=== PATIENT | male | born 1985 | race Caucasian/White ===

== ENCOUNTER 2017-07-24 11:36 | Emergency (ER) | payer OTHER ==
[2017-07-24 12:22] VITALS: BMI 23.3
--- NOTE | 2017-07-24 12:41 | PDOC ---
Attending Attestation - Resident Resident Name: AmandeepArun akins - ED Attending Attestation I have performed the following: I have examined & evaluated the patient, The case was reviewed & discussed with the resident, I agree w/resident's findings & plan, Exceptions are as noted - HPI HPI: 07/24/17 12:29 32-year-old with past medical history of ulcerative colitis on mercaptopurine presents with abdominal pain and bloody stools. The patient started have symptoms 2 days ago when he developed loose stools and lower abdominal discomfort. Has been tolerating by mouth. However, was endorsing tactile fevers and chills and sweats. Yesterday night, noticed some blood in his toilet paper and today in his stools. He denies any headaches, nausea or vomiting. Came to the ED for further evaluation. 5 years ago, patient did have a history where he is admitted to the ICU for sinus venous thrombosis and was placed on heparin. He was in the ICU for approximately 2 months and sent to a subacute rehabilitation facility afterwards. The patient subsequently made a full recovery. He denies any headaches or neurological deficits at this time. - Physicial Exam PE: 07/24/17 12:41 GENERAL: Awake, alert, and fully oriented, in no acute distress. HEAD: No signs of trauma EYES: PERRLA, EOMI, sclera anicteric, conjunctiva clear ENT: Auricles normal inspection, hearing grossly normal, nares patent, oropharynx clear without exudates. NECK: Normal ROM, supple, no lymphadenopathy, JVD, or masses LUNGS: Breath sounds equal, clear to auscultation bilaterally. No wheezes, and no crackles HEART: Regular rate and rhythm, normal S1 and S2, no murmurs, rubs or gallops ABDOMEN: Soft, nontender, normoactive bowel sounds. No guarding, no rebound. No masses EXTREMITIES: Normal range of motion, no edema. No clubbing or cyanosis. No cords, erythema, or tenderness NEUROLOGICAL: Cranial nerves II through XII grossly intact. Normal speech, normal gait SKIN: Warm, Dry, normal turgor, no rashes or lesions noted. - Medical Decision Making 07/24/17 12:42 Vital Signs Temp Pulse Resp BP Pulse Ox 99.0 F 84 18 138/88 100 07/24/17 11:49 07/24/17 11:49 07/24/17 11:49 07/24/17 11:49 07/24/17 11:49 Patient's symptoms are concerning for ulcerative colitis flareup. Patient will need labs, CAT scan of the abdomen pelvis. Once results return, we'll touch base with the patient's GI personal physician Dr. Burciaga [phone] 07/24/17 17:17 CBC, BMP 07/24/17 12:35 07/24/17 12:35 CMP Sodium 136 mmol/L (136-145) 07/24/17 12:35 Potassium 3.7 mmol/L (3.5-5.1) 07/24/17 12:35 Chloride 103 mmol/L (98-107) 07/24/17 12:35 Carbon Dioxide 26 mmol/L (21-32) 07/24/17 12:35 Anion Gap 7 (8-16) L 07/24/17 12:35 BUN 8 mg/dL (7-18) 07/24/17 12:35 Creatinine 0.9 mg/dL (0.7-1.3) 07/24/17 12:35 Creat Clearance w eGFR > 60 (>60) 07/24/17 12:35 Random Glucose 83 mg/dL (74-106) 07/24/17 12:35 Lactic Acid 0.6 mmol/L (0.4-2.0) 07/24/17 12:35 Calcium 8.7 mg/dL (8.5-10.1) 07/24/17 12:35 Total Bilirubin 0.5 mg/dL (0.2-1.0) 07/24/17 12:35 AST 7 U/L (15-37) L 07/24/17 12:35 ALT 15 U/L (12-78) 07/24/17 12:35 Alkaline Phosphatase 66 U/L (45-117) 07/24/17 12:35 C-Reactive Protein 6.7 MG/DL (0.00-0.3) H 07/24/17 12:35 Total Protein 7.3 g/dl (6.4-8.2) 07/24/17 12:35 Albumin 4.0 g/dl (3.4-5.0) 07/24/17 12:35 CT scan demonstrates findings consistent with ulcerative colitis. Dispo per DR. Knowles (who is covering for Dr. Burciaga).
[2017-07-24 13:08] LABS: BASO % 0.2 % (0-2.0); EOS % 1.1 % (0-4.5); HEMATOCRIT 44.8 % (35.4-49); HEMOGLOBIN 14.7 GM/dL (11.7-16.9); LYMPH % 6.9 % (8-40); MCH 30.8 pg (25.7-33.7); MCHC 32.9 g/dl (32.0-35.9); MEAN CELL VOLUME 93.7 fl (80-96); MEAN PLT VOLUME 7.6 fl (7.5-11.1); MONO % 7.1 % (3.8-10.2); NEUT % 84.7 % (42.8-82.8); PLATELET COUNT 254 K/MM3 (134-434); RBC 4.78 M/mm3 (4.00-5.60); RDW 13.9 % (11.9-15.9); WHITE BLOOD COUNT 11.2 K/mm3 (4.0-10.0)
[2017-07-24 13:30] LABS: ALK PHOS 66 U/L (45-117); ANION GAP 7 (8-16); BILIRUBIN,TOTAL 0.5 mg/dL (0.2-1.0); BLOOD UREA NITROGEN 8 mg/dL (7-18); CALCIUM 8.7 mg/dL (8.5-10.1); CHLORIDE 103 mmol/L (98-107); CO2 26 mmol/L (21-32); CREATININE 0.9 mg/dL (0.7-1.3); GLUCOSE,RANDOM 83 mg/dL (74-106); POTASSIUM 3.7 mmol/L (3.5-5.1); SGOT/AST 7 U/L (15-37); SGPT/ALT 15 U/L (12-78); SODIUM 136 mmol/L (136-145); TOT PROT 7.3 g/dl (6.4-8.2)
[2017-07-24 13:44] LABS: INR 1.02 (0.82-1.09); PROTHROMBIN TIME (PATIENT) 11.5 SEC (9.98-11.88)
--- NOTE | 2017-07-24 13:45 | PDOC ---
History of Present Illness - General Chief Complaint: Pain, Acute Stated Complaint: ABD PAIN (PCP SENT) Time Seen by Provider: 07/24/17 11:45 - History of Present Illness Initial Comments: 07/24/17 13:40 Pt is a 32M with PMH Ulcerative Collitis with a severe flare up in the several years ago complicated by venous sinus thrombosis, Stroke (residual L leg weakness resolved after rehab. Pt was on Coumadin), and seizures. Pt comes in today with subjective fevers since (unmeasured, but pt has been sweating through his clothes, changing twice daily) and nonbloody diarrhea since . Last night, he noticed streaks of blood on his toilet paper, and had 1 BM today , also with blood on the TP. Pt also reports lower abdominal pain, nonradiating , especially worsened when having BM. Denies headache, cp, sob, weakness, dizziness, decreased PO intake. Pt currently afebrile, stable, in NAD. Past History - Past Medical History Allergies/Adverse Reactions: Allergies Allergy/AdvReac Type Severity Reaction Status Date / Time No Known Allergies Allergy Verified 07/24/17 11:54 Home Medications: Ambulatory Orders Mercaptopurine [Purinethol -] 75 mg PO DAILY 07/24/17 COPD: No GI Disorders: Yes (colitis) Other medical history: sinus venous thrombosis. - Suicide/Smoking/Psychosocial Hx Smoking History: Never smoked Have you smoked in the past 12 months: No Number of Cigarettes Smoked Daily: 20 Information on smoking cessation initiated: No Hx Alcohol Use: No Drug/Substance Use Hx: No Substance Use Type: None Review of Systems - Review of Systems Able to Perform ROS?: Yes Is the patient limited Ivorian proficient: No Constitutional: Yes: Symptoms Reported, Chills, Diaphoresis (soaking clothes), Fever HEENTM: Yes: Symptoms Reported. No: Eye Pain, Blurred Vision Respiratory: Yes: Symptoms reported. No: Cough, Orthopnea, Shortness of Breath Cardiac (ROS): Yes: Symptoms Reported. No: Chest Pain, Edema, Lightheadedness, Palpitations, Syncope ABD/GI: Yes: Symptoms Reported, Abd. Pain w/ defecation, Diarrhea, Rectal Bleeding (streaks on TP), Abdominal cramping. No: Abdominal Distended, Constipated, Nausea, Poor Appetite, Poor Fluid Intake : Yes: Symptoms Reported. No: Burning, Dysuria, Discharge Musculoskeletal: Yes: Symptoms Reported. No: Back Pain, Joint Pain Integumentary: Yes: Symptoms Reported. No: Rash Neurological: Yes: Symptoms reported. No: Headache *Physical Exam - Vital Signs Last Vital Signs Temp Pulse Resp BP Pulse Ox 99.0 F 84 18 138/88 100 07/24/17 11:49 07/24/17 11:49 07/24/17 11:49 07/24/17 11:49 07/24/17 11:49 - Physical Exam General Appearance: Yes: Nourished, Appropriately Dressed. No: Apparent Distress HEENT: positive: EOMI, ANJEL, Normal ENT Inspection Neck: positive: Supple. negative: Tender, Carotid bruit, Lymphadenopathy (R), Lymphadenopathy (L) Respiratory/Chest: positive: Lungs Clear, Normal Breath Sounds. negative: Chest Tender, Respiratory Distress Cardiovascular: positive: Regular Rhythm, Regular Rate, S1, S2. negative: Edema , JVD, Murmur Vascular Pulses: Dorsalis-Pedis (R): 2+, Doralis-Pedis (L): 2+ Gastrointestinal/Abdominal: positive: Normal Bowel Sounds, Flat, Soft. negative : Tender, Organomegaly, Pulsatile Mass, Protuberent, Distended, Guarding, Hepatomegaly, Spleenomegaly Musculoskeletal: positive: Normal Inspection. negative: CVA Tenderness Extremity: positive: Normal Capillary Refill, Normal Inspection, Normal Range of Motion Integumentary: positive: Normal Color Neurologic: positive: medical billing clerk II-XII NML intact, Fully Oriented, Alert, Normal Mood/ Affect, Normal Response, Motor Strength 5/5 ED Treatment Course - LABORATORY CBC & Chemistry Diagram: 07/24/17 12:35 07/24/17 12:35 - ADDITIONAL ORDERS Additional order review: Laboratory Results 07/24/17 07/24/17 12:35 12:35 Sodium 136 Potassium 3.7 Chloride 103 Carbon Dioxide 26 Anion Gap 7 L BUN 8 Creatinine 0.9 Creat Clearance w eGFR > 60 Random Glucose 83 Lactic Acid 0.6 Calcium 8.7 Total Bilirubin 0.5 AST 7 L ALT 15 Alkaline Phosphatase 66 Total Protein 7.3 Albumin 4.0 07/24/17 12:35 RBC 4.78 MCV 93.7 MCHC 32.9 RDW 13.9 MPV 7.6 Neutrophils % 84.7 H Lymphocytes % 6.9 L Monocytes % 7.1 Eosinophils % 1.1 Basophils % 0.2 - RADIOLOGY Radiology Studies Ordered: Category Date Time Status ABDOMEN & PELVIS CT WITH CONTR [CT] Stat CT Scan 07/24/17 12:15 Ordered Medical Decision Making - Medical Decision Making 07/24/17 13:40 Pt is a 32M with PMH UC & hx flare up complicated by venous sinus thrombosis and seizure who presents with profuse diaphoresis and diarrhea since thurs and blood streaked toilet paper since last night. Plan -Sepsis workup -CBC -CMP -ESR -CRP -Abd CT w/ IV & PO contrast -UA -blood Cx -FOBT 07/24/17 13:54 C.diff PCR. stool culture 07/24/17 17:21 Spoke with GI (Dr. Knowles) who said that in the setting of the pt's clinical picture (2 bm today, afebrile, not in distress, marginal leukocytosis) that pt could go home with strict return precautions and strict instructions to call Dr. Knowles tomorrow. He mentioned that colitis on CT could be a UC flare up or could be infectious. He recommended that if the C. diff came back pos to give PO Vanc in lieu of flagyl. C.diff Ag & toxin were negative. Spoke with pt and family who acknowledge understanding and agree to follow up closely with Dr. Knowles. They also agree to return if there is any change in pt 's status. 07/24/17 17:35 Pt in no distress. Afebrile. Hemodynamically stable. No longer having diarrhea. Stool cultures pending. *DC/Admit/Observation/Transfer Diagnosis at time of Disposition: Colitis - Discharge Dispostion Disposition: HOME Admit: No - Referrals Referrals: Jose Alejandro Knowles MD [Staff Physician] - - Patient Instructions Printed Discharge Instructions: DI for Ulcerative Colitis, DI for Colitis Additional Instructions: Please take all your prescription medications as directed. Please make sure you follow up with your GI (Dr. Knowles) doctor tomorrow. Please do not delay in calling his office. If you develop any change in status, please return to the emergency department. If you develop new symptoms (eg. fever, nausea, vomiting, diarrhea, headache, abdominal pain) or if your symptoms get worse, please return to the emergency department immediately. - Post Discharge Activity
[2017-07-24 13:47] LABS: ACTIVATED PTT 27.6 SECONDS (26.9-34.4)
[2017-07-24 14:55] LABS: URINE APPEARANCE CLEAR; URINE BILIRUBIN NEGATIVE (NEGATIVE); URINE BLOOD 1+ (NEGATIVE); URINE COLOR YELLOW; URINE GLUCOSE (UA) NEGATIVE (NEGATIVE); URINE KETONE NEGATIVE (NEGATIVE); URINE LEUK ESTERASE NEGATIVE (NEGATIVE); URINE NITRITE NEGATIVE (NEGATIVE); URINE PROTEIN NEGATIVE (NEGATIVE); URINE UROBILINOGEN NEGATIVE mg/dL (0.2-1.0)
[2017-07-24 15:03] LABS: URINE MUCUS RARE
[2017-07-24] MEDS ORDERED: ACETAMINOPHEN 325 MG TABLET (FP) PO ONE (15:15)
[2017-07-24] MEDS ORDERED: ACETAMINOPHEN 325 MG TABLET (FP) ONE (15:42)
[2017-07-24 18:15] VITALS: BP 121/76; PULSE 70; TEMP 98.2
== END 2017-07-24 18:15 | disposition home or self-care (01) ==
LOC: JER 11:36
DX: K92.1 Melena (principal); K52.9 Noninfective gastroenteritis and colitis, unspecified
CPT/HCPCS: 36415; 74177-TC; 80053; 81003; 81015; 82272; 83605; 85025; 85610; 85651; 85730; 86140; 86850; 86900; 86901; 87040; 87045; 87046; 87086; 87324; 87449; 99282-25